=== PATIENT | female | born 1960 | race Caucasian/White ===

== ENCOUNTER 2017-03-21 15:23 | Emergency (ER) | payer OTHER ==
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
[2017-03-21] MEDS ORDERED: TETANUS/DIPHTHERIA/PERTUSSIS 0.5 ML SYRINGE IM ONE (15:35)
[2017-03-21] MEDS ORDERED: TETANUS/DIPHTHERIA TOXOID 0.5 ML SYRINGE IM ONE (15:47)
[2017-03-21] MEDS ORDERED: HYDROcod/ACETAM 5/325 MG TABLET PO STA (15:56)
--- NOTE | 2017-03-21 15:57 | XRAY Preliminary Report ---
Exam: XR Hand 3 View LT IMPRESSION: 1. Mildly displaced and overriding fractures of the second and third metacarpal shafts. 2. Osteoarthritis. [facility] SITE ID: [id number]
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
[2017-03-21] MEDS ORDERED: HYDROcod/ACETAM 5/325 MG TABLET ONE (16:13)
[2017-03-21 16:27] VITALS: BP 136/89
== END 2017-03-21 16:26 | disposition home or self-care (01) ==
LOC: ED 15:23
DX: S62.321A Displaced fracture of shaft of second metacarpal bone, left hand, initial encounter for closed fracture (principal); S62.323A Displaced fracture of shaft of third metacarpal bone, left hand, initial encounter for closed fracture; W01.0XXA Fall on same level from slipping, tripping and stumbling without subsequent striking against object, initial encounter; Y92.488 Other paved roadways as the place of occurrence of the external cause; R03.0 Elevated blood-pressure reading, without diagnosis of hypertension
CPT/HCPCS: 29125; 73130; 99283; A9270